=== PATIENT | female | born 1960 | race Caucasian/White ===

== ENCOUNTER → 2022-11-18 12:11 | Outpatient (CLI) | payer BC, SELFPAY ==
--- NOTE | ~2022-11-18 | XR_ITS ---
AP and lateral views of the right hip Clinical history: Pain Findings: No acute fracture or dislocation is seen. Osseous alignment is anatomic.] Hip and right SI joint are preserved. Lumbosacral spinal fixation hardware is present. Soft tissues are unremarkable. Impression: No significant abnormality seen. Lumbosacral spinal fixation hardware. Reviewed, dictated and finalized at [facility]. [employer] COMPUTING DIRECTOR Impression: No significant abnormality seen. Lumbosacral spinal fixation hardware.
== END ==
PROVIDERS: PCP Internal Medicine; Visit Provider Physician Assistant Medical
DX: M25.551 Pain in right hip (principal)
CPT/HCPCS: 73502

== ENCOUNTER 2024-06-04 15:12 | Outpatient (CLI) | payer BC, SELFPAY ==
--- NOTE | ~2024-06-04 | CT_ITS ---
EXAMINATION: CT abdomen pelvis wo con DATE: 06/04/2024 15:35 INDICATION: Abdominal pain. TECHNIQUE: Computed tomography (CT) of the abdomen and pelvis was performed without intravenous contr ast. Automated exposure control and iterative reconstruction technique were employed. The dose-length product was 1073.06 mGy-cm. COMPARISON: None. FINDINGS: The visualized portions of the lung bases demonstrate mild atelectasis. No pleural effusion . The heart is normal. No pericardial effusion. The liver, gallbladder, pancreas, adrenal glands, and kidneys are normal. There is no urolithiasis. There is diverticulosis of the colon without evidence of diverticulitis. There are no dilated loops of bowel. The appendix is normal. There are no patholog ically enlarged lymph nodes. There is no ascites. There are changes of anterior and posterior fusion procedures at L5-S1. There is severe thoracic spondylosis and moderate lumbar spondylosis. IMPRESSION: 1. No etiology for the patient's symptoms. Reviewed, dictated and finalized at location A.
== END 2024-06-04 15:13 | disposition home or self-care (01) ==
PROVIDERS: PCP Nurse Practitioner Family; Visit Provider Nurse Practitioner Family
DX: R10.9 Unspecified abdominal pain (principal); R10.814 Left lower quadrant abdominal tenderness
CPT/HCPCS: 74176